=== PATIENT | female | born 1980 | race Caucasian/White ===

== ENCOUNTER → 2016-07-08 | Outpatient (CLI) | payer MEDICARE ==
[2016-07-08 12:15] LABS: Basophils % (A) 1 %; CH 30.4; CHCM 32.6; Eosinophils # (A) 0.1 k/uL (0-0.7); Eosinophils % (A) 2 %; HCT 42.2 % (34.0-46.0); HDW 2.01; HGB 13.6 gm/dL (11.4-16.0); Luc # (Auto) 0.18; Luc % (Auto) 3; Lymphocytes # (A) 1.1 k/uL (1.0-4.8); Lymphocytes % (A) 18 %; MCHC 32.2 g/dL (31.0-37.0); MCV 93.3 fL (80.0-100.0); Mean Platelet Volume 8.6; Monocytes # (A) 0.5 k/uL (0-1.0); Monocytes % (A) 8 %; Neutrophils # (A) 4.1 k/uL (1.3-7.7); Neutrophils % (A) 69 %; RBC 4.53 m/uL (3.80-5.40); RDW 12.8 % (11.5-15.5); WBC 5.9 k/uL (3.8-10.6); WBC (Perox) 6.02
[2016-07-08 12:57] LABS: Carbon Dioxide 27 mmol/L (22-30); Cholesterol 161 mg/dL (<200); Total Protein 7.2 g/dL (6.3-8.2)
[2016-07-08 13:00] LABS: ALT 40 U/L (9-52); AST 30 U/L (14-36); Alkaline Phosphatase 66 U/L (38-126); Anion Gap 11 mmol/L; Blood Urea Nitrogen 17 mg/dL (7-17); Calcium 9.1 mg/dL (8.4-10.2); Chloride 99 mmol/L (98-107); Creatine Kinase 41 U/L (30-135); Glucose 85 mg/dL (74-99); HDL Cholesterol 60 mg/dL (40-60); Iron 51 ug/dL (37-170); Magnesium 1.9 mg/dL (1.6-2.3); Non-African American GFR(MDRD) >60 (>60 ml/min/1.73 sqM); Sodium 137 mmol/L (137-145); Total Bilirubin 0.3 mg/dL (0.2-1.3); Triglycerides 108 mg/dL (<150)
[2016-07-08 13:09] LABS: Total Iron Binding Capacity 341 ug/dL (265-497)
[2016-07-08 13:25] LABS: Vitamin B12 790 pg/mL (239-931)
== END | disposition home or self-care (01) ==
LOC: LABWHC1 11:52
PROVIDERS: ATTEND Family Medicine
DX: A69.20 Lyme disease, unspecified (principal); M79.7 Fibromyalgia; R03.0 Elevated blood-pressure reading, without diagnosis of hypertension; G89.4 Chronic pain syndrome; R53.82 Chronic fatigue, unspecified; E78.2 Mixed hyperlipidemia
CPT/HCPCS: 36415; 80053; 80061; 82306; 82550; 82607; 83540; 83550; 83735; 84439; 84443; 85025

== ENCOUNTER → 2017-12-04 | Outpatient (CLI) | payer MEDICARE ==
--- NOTE | 2017-12-04 21:31 | MR ---
EXAMINATION TYPE: MR cervical spine wo con DATE OF EXAM: 12/04/2017 COMPARISON: None HISTORY: Cervical disc disorder with myelopathy TECHNIQUE: Multiplanar, multisequence images of the cervical spine were acquired. C2-C3: No evidence for degenerative disc disease. No disc bulge/herniation or protrusion. No Canal stenosis. Foramina are patent bilaterally. C3-C4: No evidence for degenerative disc disease. No disc bulge/herniation or protrusion. No Canal stenosis. Foramina are patent bilaterally. C4-C5: No evidence for degenerative disc disease. No disc bulge/herniation or protrusion. No Canal stenosis. Foramina are patent bilaterally. C5-C6: Endplate changes and mild disc bulge has mild anterior thecal sac contact. No AP spinal canal stenosis is present. Neural foramen are patent. C6-C7: Mild disc bulge is present with anterior thecal sac flattening. No AP spinal canal stenosis pr esent. Mild left foraminal narrowing is present. The right foramen is patent. C7-T1: No evidence for degenerative disc disease. No disc bulge/herniation or protrusion. No Canal stenosis. Foramina are patent bilaterally. Vertebral body alignment is normal. No spinal canal stenosis present. Cervical spinal cord has normal signal through its visualized course. The craniovertebral junction is normal. IMPRESSION: Mild disc bulging present greatest at C6-7 and C5-6 with mild anterior thecal sac compression and
== END | disposition home or self-care (01) ==
LOC: RADMRIMAIN 06:10
PROVIDERS: ATTEND Family Medicine
DX: M50.022 Cervical disc disorder at C5-C6 level with myelopathy (principal)
CPT/HCPCS: 72141

== ENCOUNTER → 2024-03-17 | Outpatient (CLI) | payer MEDICARE ==
--- NOTE | 2024-03-19 18:48 | CT ---
EXAMINATION TYPE: CT chest wo/w con DATE OF EXAM: 03/17/2024 11:44 AM COMPARISON: None. CLINICAL INDICATION: Female, 43 years old with history of Possible retained venous catheter-not dialy sis cat, r/o foreign body from mediport placement TECHNIQUE: Axial images were obtained at 5 mm thick sections. Reconstructed images are reviewed on [email or web address] computer in the coronal plane. Contrast used:100 mL of Isovue 300 without and with IV Contrast, (none if empty) Oral contrast used: (none if empty) CT DLP: 942.8 mGycm, Automated exposure control for dose reduction was used. FINDINGS: Portion of the thyroid visualized is normal. No suspicious lung nodules or focal infiltrates are present. No radiopaque foreign bodies are evident. No enlarged mediastinal or hilar adenopathy is evident. The ascending aorta diameter at the level o f the main pulmonary artery is 4.2 cm. The main pulmonary artery diameter at the bifurcation is 2.[address] sections are obtained through the upper abdomen. Abdomen is essentially unremarkable. IMPRESSION: 1. No radiopaque foreign body identified. 2. No acute pulmonary process. [facility], , 03/19/2024 6:45 PM
== END | disposition home or self-care (01) ==
LOC: RADCTMAIN 10:42
PROVIDERS: ATTEND Surgery
DX: T85.691A Other mechanical complication of intraperitoneal dialysis catheter, initial encounter (principal)
CPT/HCPCS: 71270; Q9967